=== PATIENT | female | born 1995 | race Caucasian/White ===

== ENCOUNTER 2021-01-11 19:40 | Observation (INO) | payer OTHER ==
[2021-01-11] MEDS ORDERED: Magnesium Sulfate 2gm IVPB 2 G/50 ML BAG IV ONE (20:49)
[2021-01-11] MEDS ORDERED: GLUCAGON 1 MG/VIAL ONE ×2 (20:49→21:54)
--- NOTE | 2021-01-11 23:10 | ER ---
Nurse's Notes [facility] [place] Name: Ingris Bolivar Age: 25 yrs Sex: Female : 1995 Arrival Date: 01/11/2021 Time: 19:51 Bed 6 Private MD: Diagnosis: Dysphagia-Unable to swallow liquids or solids Presentation: 01/11 20:02 Chief complaint: Patient states: Esophageal spamming since 12. Pt stated she cant kg swallow anything just spits it out. Pt stated she has had these before but the longest its ever last was 2 hrs. Coronavirus screen: Client denies travel out of the [place] in the last 14 days. At this time, unable to obtain information related to travel outside the [place] At this time, the client does not indicate any symptoms associated with coronavirus-19. Ebola Screen: Patient negative for fever greater than or equal to 101.5 degrees Fahrenheit, and additional compatible Ebola Virus Disease symptoms Patient denies exposure to infectious person. Patient denies travel to an Ebola-affected area in the 21 days before illness onset. Initial Sepsis Screen: Does the patient meet any 2 criteria? No. Patient's initial sepsis screen is negative. Does the patient have a suspected source of infection? No. Patient's initial sepsis screen is negative. Risk Assessment: Do you want to hurt yourself or someone else? Patient reports no desire to harm self or others. Onset of symptoms was January 11, 2021 at 12:00. 20:02 Method Of Arrival: Ambulatory kg 20:02 Acuity: SIMONE 4 kg Triage Assessment: 20:05 General: Appears in no apparent distress. Behavior is calm, cooperative, appropriate kg for age, quiet. Pain: Complains of pain in mid-sternal area Pain does not radiate. Pain currently is 5 out of 10 on a pain scale. at worst was 7 out of 10 on a pain scale. level that patient reports is acceptable is 3 out of 10 on a pain scale. Quality of pain is described as Tightness Pain began 12:00 when she was eating lunch. 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 - Social history:: Smoking status: Patient denies any tobacco usage or history of. Patient uses alcohol, weekly. - Family history:: not pertinent. - Hospitalizations: : No recent hospitalization is reported. Screenin:12 Abuse screen: Denies threats or abuse. Denies injuries from another. Nutritional kg screening: No deficits noted. Tuberculosis screening: No symptoms or risk factors identified. Fall Risk None identified. Assessment: 20:38 General: Appears in no apparent distress. Behavior is appropriate for age. Pain:. Pain: ea Denies pain. Neuro: Level of Consciousness is awake, alert, obeys commands, Oriented to person, place, time. Respiratory: Airway is patent Respiratory effort is even, unlabored, Respiratory pattern is regular, symmetrical. Derm: Skin is pink, warm \T\ dry. 21:30 Reassessment: Patient and/or family updated on plan of care and expected duration. Pain ea level reassessed. Patient is alert, oriented x 3, equal unlabored respirations, skin warm/dry/pink. 23:03 Reassessment: Patient and/or family updated on plan of care and expected duration. Pain ea level reassessed. Patient is alert, oriented x 3, equal unlabored respirations, skin warm/dry/pink. Pt unable to tolerate PO challenge. Vital Signs: 20:02 BP 121 / 86; Pulse 60; Resp 15; Temp 97.3(TE); Pulse Ox 100% ; Weight 58.97 kg (R); kg Height 5 ft. 10 in. (177.80 cm) (R); Pain 5/10; 20:02 Body Mass Index 18.65 (58.97 kg, 177.80 cm) kg ED Course: 19:51 Patient arrived in ED. es 20:04 Triage completed. kg 20:05 Arm band placed on left wrist. kg 20:10 Gamaliel Ramirez MD is Attending Physician. rn 20:25 Isabelle Bradley RN is Primary Nurse. ea 20:33 Inserted saline lock: 20 gauge in right antecubital area, using aseptic technique. ds4 Blood collected. 20:39 Patient has correct armband on for positive identification. Bed in low position. Call ea light in reach. Side rails up X2. 23:09 Wilton Duke is Hospitalizing Provider. rn Administered Medications: 20:38 Drug: GlucaGen (glucagon) 1 mg Route: IVP; Site: right antecubital; ea 22:03 Follow up: Response: No adverse reaction ea 20:38 Drug: Magnesium Sulfate 1 grams Route: IVPB; Infused Over: 1 hrs; Site: right ea antecubital; 21:35 Drug: Glucagon 1 mg Route: IVP; Site: right antecubital; ea 23:52 Drug: Valium (diazepam) 2 mg Route: IVP; Site: left forearm; ea 01/12 07:20 Drug: D5-1/2 NS 1000 ml Route: IV; Rate: 125 ml/hr; Site: right antecubital; aa5 Outcome: 01/11 23:10 Decision to Hospitalize by Provider. rn 01/12 13:08 Patient left the ED. aa5 Signatures: Stephani Campos Roman, MD MD rn Calderon, Audri, RN RN aa5 Lazaro Hopkins ds4 Isabelle Bradley RN RN ea Graham, Kristen, RN RN kg Corrections: (The following items were deleted from the chart) 01/11 20:10 20:05 PMHx: Esophageal Spasm; kg kg 20:10 20:05 PSHx: Esophageal spasm; kg kg
--- NOTE | 2021-01-11 23:11 | EDPHYS ---
Physician Documentation [facility] Name: Ingris Bolivar Age: 25 yrs Sex: Female : 1995 Arrival Date: 01/11/2021 Time: 19:51 Bed 6 Private MD: ED Physician Gamaliel Ramirez HPI: 01/11 20:21 This 25 yrs old Female presents to ER via Ambulatory with complaints of rn esophageal spasm. 20:21 The patient or guardian reports chest pain that is located primarily in the substernal rn area. 20:23 The pain does not radiate. Associated signs and symptoms: Pertinent positives: Trouble rn swallowing. The chest pain is described as aching, squeezing. Duration: The patient or guardian reports multiple episodes, that are intermittent. Modifying factors: The symptoms are alleviated by nothing. the symptoms are aggravated by swallowing. Severity of pain: At its worst the pain was mild in the emergency department the pain is unchanged. The patient has experienced a previous episode. The patient has not recently seen a physician. Patient reports eating lunch, eating salmon, since then feels like is having esophageal spasms. Has happened before but only lasted for a few hours. Denies chronic acid reflux. No neurological medical problems. Denies previous esophageal trauma or injury. States feels like liquids go down but then gets stuck mid chest and has a squeezing sensation.. 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 - Social history:: Smoking status: Patient denies any tobacco usage or history of. Patient uses alcohol, weekly. - Family history:: not pertinent. - Hospitalizations: : No recent hospitalization is reported. ROS: 20:23 Constitutional: Negative for fever, chills, and weight loss, Eyes: Negative for injury, rn pain, redness, and discharge, ENT: Positive for trouble swallowing Neck: Negative for injury, pain, and swelling, Cardiovascular: Negative for palpitations, and edema, Respiratory: Negative for shortness of breath, cough, wheezing, and pleuritic chest pain, Abdomen/GI: Vomited one time, negative for abdominal pain Back: Negative for injury and pain, MS/Extremity: Negative for injury and deformity, Skin: Negative for injury, rash, and discoloration, Neuro: Negative for headache, weakness, numbness, tingling, and seizure. 20:23 All other systems are negative. Exam: 20:23 Constitutional: This is a well developed, well nourished patient who is awake, alert, rn and in no acute distress. Head/Face: Normocephalic, atraumatic. Eyes: Periorbital areas with no swelling, redness, or edema. ENT: No stridor Neck: Trachea midline, no masses Cardiovascular: Regular rate and rhythm. No pulse deficits. Respiratory: Speaking full sentences, unlabored. No increased work of breathing, no retractions or nasal flaring. Skin: Warm, dry MS/ Extremity: Pulses equal, no cyanosis. Neuro: Awake and alert, GCS 15, oriented to person, place, time, and situation. Cerebellar exam normal. Normal gait. Vital Signs: 20:02 BP 121 / 86; Pulse 60; Resp 15; Temp 97.3(TE); Pulse Ox 100% ; Weight 58.97 kg (R); kg Height 5 ft. 10 in. (177.80 cm) (R); Pain 5/10; 20:02 Body Mass Index 18.65 (58.97 kg, 177.80 cm) kg MDM: 20:10 Patient medically screened. rn 21:26 ED course: Patient feels a little bit better but still feels mild spasms.. rn 22:05 Differential diagnosis: esophagitis, gastroesophageal reflux disease (GERD), Esophageal rn spasm, achalasia, esophagitis. 22:07 ED course: Spoke with payroll technician, states unable to do an esophagram or upper GI rn follow-through at nighttime.. 23:06 Data reviewed: vital signs, nurses notes, and as a result, I will admit patient. rn Counseling: I had a detailed discussion with the patient and/or guardian regarding: the historical points, exam findings, and any diagnostic results supporting the discharge/admit diagnosis, the need for outpatient follow up, to return to the emergency department if symptoms worsen or persist or if there are any questions or concerns that arise at home. 23:08 Response to treatment: There is no appreciated change of the patient's symptoms at this rn time. ED course: Patient fails p.o. challenge. Gave water unable to swallow water came back out. Unclear if structural versus mechanical. Unable to get further studies tonight in ER. Will have to admit for GI consultation, possible EGD and esophagram.. 01/12 00:39 ED course: Tried Valium, did not work, patient still unable to tolerate liquids on p.o. rn challenge. Will admit for further work-up.. 01/12 02:02 Order name: COVID-19 : Document "Date of Symptom Onset" if Symptomatic. bb 01/12 03:45 Order name: CORONAVIRUS [facility] 01/12 05:20 Order name: SARS-COV-2 RT PCR; Complete Time: 06:26 [facility] 01/12 05:57 Order name: CBC with Automated Diff; Complete Time: 06:26 [facility] 01/12 06:17 Order name: Comprehensive Metabolic Panel; Complete Time: 06:26 [facility] 01/12 06:17 Order name: Phosphorus; Complete Time: 06:26 [facility] 01/12 06:17 Order name: Creatine Phosphokinase; Complete Time: 06:26 [facility] 01/12 06:17 Order name: C-Reactive Protein; Complete Time: 06:26 [facility] 01/12 06:17 Order name: T4 Free; Complete Time: 06:26 [facility] 01/12 06:17 Order name: Magnesium; Complete Time: 06:26 [facility] 01/12 06:17 Order name: Thyroid Stimulating Hormone; Complete Time: 06:26 [facility] 01/12 06:25 Order name: Sedimentation Rate, Westergren; Complete Time: 06:26 [facility] 01/11 20:11 Order name: IV Start; Complete Time: 20:37 rn 01/12 00:46 Order name: CONS Physician Consult EDMI Administered Medications: 01/11 20:38 Drug: GlucaGen (glucagon) 1 mg Route: IVP; Site: right antecubital; ea 22:03 Follow up: Response: No adverse reaction ea 20:38 Drug: Magnesium Sulfate 1 grams Route: IVPB; Infused Over: 1 hrs; Site: right ea antecubital; 21:35 Drug: Glucagon 1 mg Route: IVP; Site: right antecubital; ea 23:52 Drug: Valium (diazepam) 2 mg Route: IVP; Site: left forearm; ea 01/12 07:20 Drug: D5-1/2 NS 1000 ml Route: IV; Rate: 125 ml/hr; Site: right antecubital; aa5 Disposition Summary: 01/11/21 23:10 Hospitalization Ordered Hospitalization Status: Observation rn Provider: Wilton Duke rn Condition: Stable rn Problem: new rn Symptoms: are unchanged rn Bed/Room Type: Standard rn Location: [facility] ER HOLD(01/12/21 01:59) tl1 Room Assignment: ERHOLD-(01/12/21 01:59) tl1 Diagnosis - Dysphagia - Unable to swallow liquids or solids rn Forms: - Medication Reconciliation Form rn - SBAR form rn Signatures: Dispatcher [employer] EDMS Gamaliel Ramirez MD MD rn Calderon, Audri, RN RN aa5 Bea Feliz RN RN tl1 Isabelle Bradley RN RN ea Graham, Kristen, RN RN kg Corrections: (The following items were deleted from the chart) 01/11 20:10 20:05 PMHx: Esophageal Spasm; kg kg 20:10 20:05 PSHx: Esophageal spasm; kg kg 20:26 20:23 Constitutional: This is a well developed, well nourished patient who is awake, rn alert, and in no acute distress. Head/Face: Normocephalic, atraumatic. Eyes: Periorbital areas with no swelling, redness, or edema. Cardiovascular: Regular rate and rhythm. No pulse deficits. Respiratory: Speaking full sentences, unlabored. No increased work of breathing, no retractions or nasal flaring. Skin: Warm, dry MS/ Extremity: Pulses equal, no cyanosis. Neuro: Awake and alert, GCS 15, oriented to person, place, time, and situation. Cerebellar exam normal. Normal gait. rn 20:26 20:23 Constitutional: This is a well developed, well nourished patient who is awake, rn alert, and in no acute distress. Head/Face: Normocephalic, atraumatic. Eyes: Periorbital areas with no swelling, redness, or edema. Neck: Trachea midline, no masses Cardiovascular: Regular rate and rhythm. No pulse deficits. Respiratory: Speaking full sentences, unlabored. No increased work of breathing, no retractions or nasal flaring. Skin: Warm, dry MS/ Extremity: Pulses equal, no cyanosis. Neuro: Awake and alert, GCS 15, oriented to person, place, time, and situation. Cerebellar exam normal. Normal gait. alfred 01/12 01:59 01/11 23:10 Telemetry/MedSurg (observation) alfred tl1 01/12 01:01/11 23:10 tl1
[2021-01-12] MEDS ORDERED: DIAZEPAM 10 MG/2 ML INJ SYRINGE ONE (00:10)
--- NOTE | 2021-01-12 02:02 | P.HP ---
Certification for Inpatient Patient admitted to: Observation With expected LOS: <2 Midnights Patient will require the following post-hospital care: None Practitioner: I am a practitioner with admitting privileges, knowledge of patient current condition, hospital course, and medical plan of care. Services: Services provided to patient in accordance with Admission requirements found in Title 42 Section 412.3 of the Code of Federal Regulations <FitzTushar S - Last Filed: 01/12/21 01:56> Patient History Date of Service: 01/12/21 Primary Care Provider: Penelope Murphy Reason for admission: dysphagia History of Present Illness: Ms. Bolivar is a 25 yo F who rpesentswith an episode of dysphagia. She says at noon she was eating lunch when she felt tightness in her chest and had trouble swallowing. She vomited her food and then tried to take small sips of water but couldn't keep it down. She reports substernal chest pain described as aching and squeezing and esophageal spasm that would not stop for hours. She has had multiple episodes in the past, usually every 6 months for the past 15 years, but this is the first time symptoms have lasted this long. Has never seen a doctor for it before. Episodes always triggered by solids, not liquids. No food impaction. No relief with valium, glucagon. Failed PO challenge. Denies hematemesis. Otherwise she reports she feels at baseline, denies constitutional symptoms. - Past Medical/Surgical History Has patient received pneumonia vaccine in the past: No Diabetic: No Past Medical History: Patient denies medical history Past Surgical History: Patient denies surgical history - Family History Father -: Other (see notes) Notes: lupus Mother -: GI disease Notes: curtis syndrome - Social History Smoking Status: Never smoker Alcohol use: Yes CD- Drugs: No Caffeine use: Yes Place of Residence: Home <Tushar Byrnes - Last Filed: 01/12/21 01:56> Date of Service: 01/12/21 <Felecia Fonseca - Last Filed: 01/12/21 15:02> Review of Systems 10-point ROS is otherwise unremarkable Gastrointestinal: Vomiting, As per HPI <Tushar Byrnes - Last Filed: 01/12/21 01:56> Physical Examination - Physical Exam General: Alert, In no apparent distress HEENT: Atraumatic, PERRLA, Mucous membr. moist/pink, EOMI, Sclerae nonicteric Neck: Supple, 2+ carotid pulse no bruit, No LAD, Without JVD or thyroid abnormality Respiratory: Clear to auscultation bilaterally, Normal air movement Cardiovascular: Regular rate/rhythm, Normal S1 S2 Gastrointestinal: Normal bowel sounds, No tenderness Musculoskeletal: No tenderness Integumentary: No rashes Neurological: Normal gait, Normal speech, Normal strength at 5/5 x4 extr, Normal tone, Normal affect Lymphatics: No axilla or inguinal lymphadenopathy <Tushar Byrnes - Last Filed: 01/12/21 01:56> Assessment and Plan - Problems (Diagnosis) (1) Dysphagia Status: Acute Qualifiers: Dysphagia type: unspecified Qualified Code(s): R13.10 - Dysphagia, unspecified - Plan NPO, gentle IVF hydration GI consulted, pending EGD or barium swallow CBC, CMP, TFTs, JIAN pending DVT ppx Discharge Plan: Home Plan to discharge in: 24 Hours - Advance Directives Does patient have a Living Will: No Does patient have a Durable POA for Healthcare: No - Code Status/Comfort Care Code Status Assessed: Yes (full code ) Critical Care: No Time Spent Managing Pts Care (In Minutes): 70 <Tushar Byrnes - Last Filed: 01/12/21 01:56> Date of Service: 01/12/21 Chart reviewed. Agree with plan as mentioned above. Patient evaluated and examined. Please refer to discharge summary. <Felecia Fonseca - Last Filed: 01/12/21 15:02>
[2021-01-12 04:45] VITALS: BMI 18.6
[2021-01-12] MEDS ORDERED: NA CHLORIDE 0.9% 1,000 ML IV SCH (04:51)
[2021-01-12] MEDS ORDERED: ONDANSETRON 4 MG/2 ML VIAL IV PRN (04:51)
[2021-01-12] MEDS ORDERED: ACETAMINOPHEN 500 MG TAB PO PRN (04:51)
[2021-01-12 05:50] LABS: Absolute Lymphocytes (CBC) 2.2 K/uL (0.7-4.9); Basophils % 0.8 % (0-1.3); Hematocrit 34.3 % (36.0-45.0); Lymphocytes % 42.5 % (15.3-44.8); MPV 7.2 fL (7.6-11.3); RBC Red Blood Cell Count 3.91 M/uL (3.86-4.86)
[2021-01-12 06:16] LABS: Albumin 3.4 g/dL (3.4-5.0); Bilirubin Total 0.3 mg/dL (0.2-1.0); C-Reactive Protein 6.4 mg/L (<3.00); Magnesium 2.8 mg/dL (1.8-2.4); Phosphorus 4.1 mg/dL (2.5-4.9); Potassium 3.6 mmol/L (3.5-5.1); Protein, Total 7.1 g/dL (6.4-8.2); Thyroid Stimulating Hormone 1.72 uIU/mL (0.360-3.740)
[2021-01-12] MEDS ORDERED: D5 0.45 NS 1,000 ML IV ONE (07:43)
[2021-01-12] MEDS ORDERED: ENOXAPARIN 40 MG/0.4 ML SQ ONE (08:58)
[2021-01-12] MEDS ORDERED: ENOXAPARIN 40 MG/0.4 ML SQ SCH (09:00)
[2021-01-12] MEDS ORDERED: KCL 20 MEQ/100 mL IVPB 20 MEQ/100 ML BAG IV SCH (11:00)
[2021-01-12] MEDS ORDERED: D5 0.45 NS 1,000 ML IV SCH (11:00)
[2021-01-12 11:01] VITALS: O2SAT 96
[2021-01-12] MEDS ORDERED: KCL 20 MEQ/100 mL IVPB 0 MEQ/0 ML BAG IV ONE (12:46)
[2021-01-12] MEDS ORDERED: D5 0.45 NS 0 ML IV ONE (12:52)
[2021-01-12 13:06] VITALS: BP 108/77; TEMP 98
--- NOTE | 2021-01-12 15:02 | P.DS ---
Discharge Date: 01/12/21 Primary Care Provider: Penelope Murphy Disposition: ROUTINE DISCHARGE Discharge Condition: GOOD Reason for Admission: dysphagia Brief History of Present Illness: Patient is a 25-year-old female came to the hospital with dysphasia. She felt like she was having esophageal spasms. She has had this recur every 6-8 months. 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 She recently moved from the floor the area. No other medical issues. She was admitted for further evaluation. Hospital Course: Patient workup is been unremarkable. She was able to drink some water and keep it down. I did speak with GI and they are willing to see her at 3:30 a.m. in their office. The going to schedule for possible endoscopy either later today or in the morning. Patient was agreeable with plan and so we will discharge her with Zofran for anti nausea and we will also have her follow up with GI later today. She is to call me if she has any questions. At this time patient is stable for discharge home. Vital Signs/Physical Exam: Temp Pulse Resp BP Pulse Ox 98.0 F 63 16 108/77 100 01/12/21 12:00 01/12/21 12:00 01/12/21 12:00 01/12/21 12:00 01/12/21 12:00 General: Alert, In no apparent distress, Oriented x3 Laboratory Data at Discharge: WBC 5.20 K/uL (4.3-10.9) 01/12/21 05:31 Hgb 11.5 g/dL (12.0-15.0) L 01/12/21 05:31 Hct 34.3 % (36.0-45.0) L 01/12/21 05:31 Plt Count 324 K/uL (152-406) 01/12/21 05:31 Sodium 142 mmol/L (136-145) 01/12/21 05:31 Potassium 3.6 mmol/L (3.5-5.1) 01/12/21 05:31 BUN 10 mg/dL (7-18) 01/12/21 05:31 Creatinine 0.83 mg/dL (0.55-1.3) 01/12/21 05:31 Glucose 72 mg/dL (74-106) L 01/12/21 05:31 Phosphorus 4.1 mg/dL (2.5-4.9) 01/12/21 05:31 Magnesium 2.8 mg/dL (1.8-2.4) H 01/12/21 05:31 Total Bilirubin 0.3 mg/dL (0.2-1.0) 01/12/21 05:31 AST 12 U/L (15-37) L 01/12/21 05:31 ALT 21 U/L (12-78) 01/12/21 05:31 Alkaline Phosphatase 44 U/L (45-117) L 01/12/21 05:31 Home Medications: Cetirizine HCl [Zyrtec] 10 mg PO DAILY 01/12/21 Medical Supply, Miscellaneous [Sea-Band] 01/12/21 Ondansetron [Zofran] 4 mg SL Q6H PRN #20 tab 01/12/21 New Medications: Ondansetron [Zofran] 4 mg SL Q6H PRN #20 tab PRN Reason: Nausea / Vomiting Physician Discharge Instructions: OK TO DC IV AND DC HOME FOLLOW-UP WITH DR. PARESH HARRIS TODAY AT 3:30-PLEASE ARRIVE AT 3:00 RETURN TO THE ER IF PERSISTENT NAUSEA AND VOMITING CALL DR. COONEY AT [phone] IF ANY QUESTIONS OR CONCERNS POSSIBLE ENDOSCOPY AFTER GI EVALUATION TODAY Diet: AHA Activity: Fall precautions Followup: Penelope Murphy FNP [Primary Care Provider] - Time spent managing pt's care (in minutes): 35
== END 2021-01-12 12:55 | disposition home or self-care (01) ==
LOC: ER 19:40 → ERHOLD 01-12 00:58
PROVIDERS: ADMIT Hospitalist; ATTEND Hospitalist
DX: R13.10 Dysphagia, unspecified (principal); R11.2 Nausea with vomiting, unspecified; Z20.822 Contact with and (suspected) exposure to COVID-19; Z88.0 Allergy status to penicillin; Z83.79 Family history of other diseases of the digestive system
CPT/HCPCS: 85025; 36415; 83735; 82550; 84100; 85652; 84443; 84439; 80053; 86038; 86140; 94760 ×2; 99283; U0003; J1610 ×2; J1650; J3475; J7799; J7030; G0378 ×2; J3480